=== PATIENT | female | born 1950 | race African-American/Black ===

== ENCOUNTER 2017-04-11 09:51 | Inpatient (IN) ==
--- NOTE | 2017-04-10 20:08 | Discharge Summary ---
<BrendaMariel wallaceIrene L - Last Filed: 04/10/17 20:06> Date of Encounter: 04/10/17 - Discharge Diagnosis (1) Arthritis of knee, left Priority: Primary Status: Acute (2) HTN (hypertension) Priority: Secondary Status: Chronic Qualifiers: Hypertension type: essential hypertension Qualified Code(s): I10 - Essential (primary) hypertension (3) Thyroid disease Priority: Secondary Status: Chronic (4) Obesity Priority: Secondary Status: Chronic Qualifiers: Obesity type: unspecified obesity type Obesity severity: unspecified obesity severity Qualified Code(s): E66.9 - Obesity, unspecified - Discharge Medications Home Medications: Aspirin Enteric Coated [Aspirin EC] 325 mg PO DAILY #21 tablet. 04/10/17 [Rx] OxyCODONE Immed Rel [Roxicodone 5 MG] 5 - 10 mg PO Q6HR PRN #40 tablet 04/10/17 [Rx] Albuterol Sulfate [Ventolin Hfa] 2 puff IH Q4H PRN 04/11/17 [History] Cyclosporine [Restasis] 1 each OP BID 04/11/17 [History] Diclofenac Sodium [Voltaren] 1 appl TP TID PRN 04/11/17 [History] Fluticasone Propionate Nasal [Flonase] 1 spray NS DAILY 04/11/17 [History] Furosemide [Lasix] 40 mg PO DAILY 04/11/17 [History] Gabapentin [Neurontin] 300 mg PO TID 04/11/17 [History] Ibuprofen [Motrin] 200 mg PO Q6H PRN 04/11/17 [History] Latanoprost [Xalatan] 1 drop OP HS 04/11/17 [History] Levothyroxine [Synthroid] 50 mcg PO 0630 04/11/17 [History] Meloxicam [Mobic] 15 mg PO DAILY 04/11/17 [History] Omeprazole [PriLOSEC] 40 mg PO DAILY 04/11/17 [History] Potassium Chloride [K-Tab ER] 10 meq PO BID 04/11/17 [History] Sertraline [Zoloft] 100 mg PO DAILY 04/11/17 [History] Spironolactone [Aldactone] 25 mg PO BID 04/11/17 [History] Allergies/Adverse Reactions: Allergies acetaminophen [From Excedrin Migraine] Allergy (Verified 04/11/17 10:23) See Comments rapid heart rate aspirin [From Excedrin Migraine] Allergy (Verified 04/11/17 10:23) See Comments rapid heart rate caffeine [From Excedrin Migraine] Allergy (Verified 04/11/17 10:23) See Comments rapid heart rate Tetracycline Adverse Reaction (Verified 04/11/17 10:23) Nausea acne meds Adverse Reaction (Uncoded 04/11/17 10:23) Nausea/ vomiting Primary care physician: Marifer Alvarez MD - Patient Status Disposition: Home, Self-Care Condition: Good - Discharge Instructions Follow Up With: Marifer Alvarez MD [Primary Care Provider] - - Hospital Course Hospital course: Ms. Davis is a 66 year old female - Time Spent with Patient Total time spent providing and/or coordinating discharge services: <Hong Kasper - Last Filed: 04/14/17 08:29> Date of Encounter: 04/14/17 Time of Encounter: 08:29 - Discharge Diagnosis (1) Arthritis of knee, left Priority: Primary Status: Acute (2) HTN (hypertension) Priority: Secondary Status: Chronic Qualifiers: Hypertension type: essential hypertension Qualified Code(s): I10 - Essential (primary) hypertension (3) Thyroid disease Priority: Secondary Status: Chronic (4) Obesity Priority: Secondary Status: Chronic Qualifiers: Obesity type: unspecified obesity type Obesity severity: unspecified obesity severity Qualified Code(s): E66.9 - Obesity, unspecified (5) Acute blood loss anemia Priority: Primary Status: Acute Primary care physician: Marifer Alvarez MD - Patient Status Functional capacity at discharge: uses cane/walker Overall status at discharge: patient is progressing back to baseline - Hospital Course Hospital course: Ms. Davis is a 66 year old female The patient had an uneventful postoperative course. They received antibiotics and physical therapy and were discharged in stable condition. There will follow -up in the office in 2 weeks. Patient with acute blood loss anemia received 2 units of blood prior to discharge posttransfusion hematocrit 29. Patient on anticoagulation for prophylaxis - Time Spent with Patient Total time spent providing and/or coordinating discharge services:
[2017-04-11] MEDS ORDERED: CeFAZolin Pre 2,000 MG/100 ML 2,000 MG/100 ML BAG IVPB ONE (10:13)
[2017-04-11] MEDS ORDERED: Ringers Solution, Lactated 1,000 ML IVC SCH ×2 (10:15→15:10)
--- NOTE | 2017-04-11 10:16 | History & Physical Report ---
Date of Encounter: 04/11/17 Time of Encounter: 10:16 24 Hour HP Update - Instructions Instructions: If the History and Physical is less than 30 days old and was completed prior to A.M. admission and or procedure and has NOT been updated on calendar day of procedure please complete this update prior to performing procedure. - Update Patient reports changes in Medical Condition: No Changes in examination, assessment, or condition: No Changes in Medication: No Preop tests/diagnostics Reviewed: Yes Surgery Remains Indicated: Yes Consent for Planned Operative Procedure(s) Verified: Yes - Pre-Operative Checklist Preoperative Checklist Indicated: No Prophylactic Antibiotic Ordered: Yes Is VTE Prophylaxis Indicated?: Yes
[2017-04-11] MEDS ORDERED: Gabapentin 300 MG CAPSULE PO ONE (11:43)
[2017-04-11] MEDS ORDERED: Famotidine 20 MG/2 ML VIAL IVP ONE (11:43)
--- NOTE | 2017-04-11 11:58 | Anesthesia Evaluation PreOp ---
Date of Encounter: 04/11/17 Time of Encounter: 12:00 - Past History Planned Operation: Left TKA Cardiac History: HTN Pulmonary History: Denies Any Significant HX BUSINESS DEVELOPMENT AGENT History: Paresis (Paresthesia bilat feet), Other (Alford's Palsy,) Other Medical History: Renal (CKD), Thyroid Anesthesia History: No Prior Anesthetic Complications Alcohol Use: none Drug use: none Medications and Allergies Aspirin Enteric Coated [Aspirin EC] 325 mg PO DAILY #21 tablet. 04/10/17 [Rx] OxyCODONE Immed Rel [Roxicodone 5 MG] 5 - 10 mg PO Q6HR PRN #40 tablet 04/10/17 [Rx] Albuterol Sulfate [Ventolin Hfa] 2 puff IH Q4H PRN 04/11/17 [History] Cyclosporine [Restasis] 1 each OP BID 04/11/17 [History] Diclofenac Sodium [Voltaren] 1 appl TP TID PRN 04/11/17 [History] Fluticasone Propionate Nasal [Flonase] 1 spray NS DAILY 04/11/17 [History] Furosemide [Lasix] 40 mg PO DAILY 04/11/17 [History] Gabapentin [Neurontin] 300 mg PO TID 04/11/17 [History] Ibuprofen [Motrin] 200 mg PO Q6H PRN 04/11/17 [History] Latanoprost [Xalatan] 1 drop OP HS 04/11/17 [History] Levothyroxine [Synthroid] 50 mcg PO 0630 04/11/17 [History] Meloxicam [Mobic] 15 mg PO DAILY 04/11/17 [History] Omeprazole [PriLOSEC] 40 mg PO DAILY 04/11/17 [History] Potassium Chloride [K-Tab ER] 10 meq PO BID 04/11/17 [History] Sertraline [Zoloft] 100 mg PO DAILY 04/11/17 [History] Spironolactone [Aldactone] 25 mg PO BID 04/11/17 [History] Allergies acetaminophen [From Excedrin Migraine] Allergy (Verified 04/11/17 10:23) See Comments rapid heart rate aspirin [From Excedrin Migraine] Allergy (Verified 04/11/17 10:23) See Comments rapid heart rate caffeine [From Excedrin Migraine] Allergy (Verified 04/11/17 10:23) See Comments rapid heart rate Tetracycline Adverse Reaction (Verified 04/11/17 10:23) Nausea acne meds Adverse Reaction (Uncoded 04/11/17 10:23) Nausea/ vomiting - Meds/Allergy Pre-op Review Medications Reviewed: Yes Allergies Reviewed: Yes Beta Blockers on Current Med List: No Anesthesia Results - Labs Laboratory Tests 04/04/17 04/04/17 14:15 14:15 Hgb 11.1 L Hct 37.8 Plt Count 199 Sodium 140 Potassium 3.8 BUN 28 H Creatinine 1.42 H - Imaging EKG: report reviewed (SR) Anesthesia Exam O2 Sat Height 73.76 m Height 73.76 m Weight 109.769 kg Weight 109.769 kg O2 Sat by Pulse Oximetry 95 Vital Signs Temp Pulse Resp BP Pulse Ox 98.3 F 79 16 117/68 95 04/11/17 10:37 04/11/17 10:37 04/11/17 10:37 04/11/17 10:37 04/11/17 10:37 Height: 5'3 Weight: 242 lbs NPO (# of Hours): MN Pain Scale: 0 - HEENT Pupil (Motor): Pupils equal, EOMI Mallampati: II Teeth: Normal Oral Opening: Greater than 3 - BUSINESS DEVELOPMENT AGENT LOC: Oriented BUSINESS DEVELOPMENT AGENT Motor: Normal RUE, Normal LUE, Normal RLE, Normal LLE, Normal Face BUSINESS DEVELOPMENT AGENT Sensory: Normal: RUE, LUE, Face, Deficit: RLE (paresthesia), LLE ( paresthesia) - Cardiac Rhythm: Regular Murmur: None JVD: No Carotid Bruit: No - Pulmonary Breath Sounds: bilateral Clear Respiratory Effort: Symmetrical Anesthesia Assess/Plan ASA Score: 3 (HTN Hypothyroid CKD) Modified [place] Scale for Level of Consciousness: Cooperative, oriented, and tranquil Anesthetic Plan: General, Regional Monitoring Plan: Standard Monitors Recovery Plan: PACU (Discussed GA and RA, agrees to proceed)
[2017-04-11] MEDS ORDERED: Tetracaine/PF 20 MG/2 ML AMPUL ONE (12:16)
[2017-04-11] MEDS ORDERED: Bupivacaine/Clonidine Syringe 1 EACH SYRINGE ONE (12:16)
--- NOTE | 2017-04-11 12:45 | Anesthesia Procedures ---
Date of Encounter: 04/11/17 Time of Encounter: 12:43 Procedures: Anesthesia - Nerve Block Procedure Date: 04/11/17 Time: 12:43 Allergies/Adv Reactions: please see H&P Pre-op Diagnosis: L knee arthritis Surgical Procedure: L TKA Checklist: Correct Patient Identifier, Correct procedure, History checked Correct side: Left Blood Thinner: No Monitor Applied: EKG, BP, Pulse Oximetry Supplemental Oxygen via Nasal Cannula (L/min): 3 Sedation: Versed (mg): 4 Sedation: Fentanyl (mcg): 100 Indication: Post Op Analgesia (requested by Dr. Kasper) Pre-op Neuro Deficits: No Block Type: Femoral, Other (iPACK) Catheter placed: No Sterile Technique: Yes Ultrasound used: Yes Anatomy identified: Yes Visual spread of Local: Yes Neuro Stimulation: Yes Nerve Stimulator Range: 0.2 - 0.4 mA Blood on Needle Aspiration: No Smooth Injection of Local: Yes Pain with Injection of Local: No Prep: Chlorhexadine Needle: 22 x 50 mm Stimuplex (for femoral n. block), 21 x 100 mm Stimuplex ( echogenic for iPACK block) Local: 0.25% Bupivicaine w/Clonidine 20 mcg/cc (20mL for iPACK), Other (0.5% bupivicaine 30mL for femoral n. block) Number of Attempts: 1 Complications: None/effective block Vitals: 3 Vital Signs Time pre-procedure post-procedure BP 110/71 115/73 Pulse 77 76 Resp 16 14 O2 Sat 99 99
[2017-04-11] MEDS ORDERED: *HR* HYDROmorphone (PF) 1 MG/ML SYRINGE IVP PRN (12:47)
[2017-04-11] MEDS ORDERED: Ondansetron 4 MG/2 ML VIAL IVP PRN ×2 (12:47→15:10)
[2017-04-11] MEDS ORDERED: *HR* Labetalol 100 MG/20 ML MDV IVP PRN (12:47)
[2017-04-11] MEDS ORDERED: Ondansetron 4 MG/2 ML VIAL ONE (13:28)
[2017-04-11] MEDS ORDERED: *HR* Propofol 200 MG/20 ML VIAL IVP ONE (13:28)
[2017-04-11] MEDS ORDERED: *HR* FentaNYL (PF) 100 MCG/2 ML VIAL ONE (13:28)
[2017-04-11] MEDS ORDERED: Dexamethasone 4 MG/ML VIAL ONE (13:28)
[2017-04-11] MEDS ORDERED: Lidocaine -MPF 2% 2 ML VIAL ONE (13:28)
[2017-04-11] MEDS ORDERED: *HR* Midazolam HCl 2 MG/2 ML VIAL ONE (13:28)
[2017-04-11] MEDS ORDERED: *HR* HYDROmorphone 2 MG/ML SYRINGE ONE (13:31)
--- NOTE | 2017-04-11 13:42 | Orthopedic Operative Note ---
Date of procedure: 04/11/17 Pre-op diagnosis: Left knee arthritis Post-op diagnosis: same Procedure: Procedure: Left Total knee replacement Estimated blood loss: 200 cc Hardware: Metal and polyethylene replacement. Biomet titanium: Femur left 70, 75 tibia, 10 PS plus polys, 37 patella Exam Under anesthesia: loss full extension 10 degrees full flexion and no instability Procedural Notes: Grade 4 arthritic changes medial compartment grade 3 arthritic changes patellofemoral joint lateral compartment. Operative procedure: The patient was brought to the operating room and placed on the operating room table. After general anesthesia was administered the operative knee was examined. Findings were noted in the exam under anesthesia. The operative extremity was prepped and draped in sterile surgical fashion. The patient received IV antibiotics prior to skin incision. A standard midline incision was made centered over the patella. The incision was made through the skin and subcutaneous tissue. A medial parapatellar tendon approach was performed. Care was taken to preserve tissue along the medial aspect of the patella. And to protect the patella tendon. The deep MCL was released off the medial tibia. The infra patella fat pad was excised. Knee was brought into flexion. Patient noted to have grade 4 arthritic changes medial compartment with 3 arthritic changes lateral compartment and patellofemoral joint. The entry hole was made for the intramedullary femoral guide. The guide was seated in 6 degrees of valgus. Anterior cut was made followed by the distal cut. The ACL the PCL the medial and the lateral menisci were excised. The tibia was subluxed forward. The entry hole was made for the intramedullary tibial guide. Guide was seated to resect 2 mm off the more abnormal side. The knee was brought into flexion the distal femur was sized 70. The femoral guide was seated, the anterior cut was made followed by the posterior condylar cut, followed by the chamfer cuts. The finishing guide was seated the box cut was made and the lug holes were drilled. The tibia was sized 75, the tibial tray was seated and prepared with the large drill followed by the fin cutter. Trial reduction revealed full extension no varus valgus instability with the appropriate 10 PS plus Sherri. The patella was everted and cut was made at the level of the insertion of the quadriceps and patella tendon. The patella was sized to a 37 the guide was seated and the lug holes are drilled. Trial reduction revealed excellent patella tracking. All trial components were removed all bony surfaces were irrigated. The tibia was cemented first followed by the femur. The 10 PS plus Sherri was seated and the knee was brought into full extension. The patella was cemented and held in place with the patellar holding clamp. After the cement had hardened, the knee sat for 2 minutes with a Betadine saline solution. The knee was then irrigated out with 2 L of pulse irrigation. The extensor mechanism was closed with #2 FiberWire suture and #2 PDS suture. The subcutaneous tissue was then irrigated and closed deep with #1 PDS suture superficially with 0 PDS suture and skin was closed with skin ronald. The patient was then placed in a sterile dressing and a postoperative brace extubated and transferred to recovery room in stable condition. Anesthesia: GETA Surgeon: Hong Kasper Condition: stable Disposition: PACU
[2017-04-11 14:44] LABS: Hematocrit 32.8 % (35.3-44.9); Hemoglobin 9.9 g/dL (11.5-15.4)
[2017-04-11] MEDS ORDERED: Naloxone 0.4 MG/ML INJ IVP PRN (15:10)
[2017-04-11] MEDS ORDERED: MOM Conc 10 ML UD.LIQ PO PRN (15:10)
[2017-04-11] MEDS ORDERED: *HR* OxyCODONE Immed Rel 5 MG TABLET PO PRN (15:10)
[2017-04-11] MEDS ORDERED: Sennosides 8.6 MG TABLET PO PRN (15:10)
[2017-04-11] MEDS ORDERED: Temazepam 15 MG CAPSULE PO PRN (15:10)
[2017-04-11] MEDS: Gabapentin 300 MG CAPSULE PO SCH ×2 (15:54→20:33)
[2017-04-11] MEDS: ceFAZolin 2,000 MG in D5% in Water 100 ML IVPB SCH ×2 (15:54→23:58)
[2017-04-11] MEDS: *HR* Enoxaparin 30 MG/0.3 ML SYRINGE SQ SCH (17:20)
[2017-04-11] MEDS ORDERED: *HR* Enoxaparin 30 MG/0.3 ML SYRINGE SQ SCH (18:00)
[2017-04-11] MEDS: Spironolactone 25 MG TABLET PO SCH (20:33)
[2017-04-11] MEDS: Latanoprost 2.5 ML BOTTLE BOTH EYES SCH (20:49)
[2017-04-11] MEDS: (Cyclosporine [Restasis] 1 EACH) OP SCH (20:53)
[2017-04-12] MEDS: *HR* OxyCODONE Immed Rel 5 MG TABLET PO PRN ×5 (00:01→21:49)
[2017-04-12] MEDS: *HR* Enoxaparin 30 MG/0.3 ML SYRINGE SQ SCH ×2 (04:22→16:59)
[2017-04-12 05:00] LABS: Hematocrit 29.8 % (35.3-44.9); Hemoglobin 8.9 g/dL (11.5-15.4)
[2017-04-12 05:21] LABS: Calcium 8.7 mg/dL (8.6-10.8); Potassium 4.2 mEq/L (3.5-4.5)
--- NOTE | 2017-04-12 06:30 | Orthopedics Progress Note ---
Date of Encounter: 04/12/17 Time of Encounter: 06:29 - Assessment and Plan (1) Arthritis of knee, left Current Visit: Yes Status: Acute (2) HTN (hypertension) Current Visit: Yes Status: Chronic Qualifiers: Hypertension type: essential hypertension Qualified Code(s): I10 - Essential (primary) hypertension (3) Thyroid disease Current Visit: Yes Status: Chronic (4) Obesity Current Visit: Yes Status: Chronic Qualifiers: Obesity type: unspecified obesity type Obesity severity: unspecified obesity severity Qualified Code(s): E66.9 - Obesity, unspecified Subjective Interval history: Patient was seen this morning doing well without complaints. Afebrile vital signs stable. Operative extremity: Neurovascularly intact Dressing clean dry and intact Calves nontender Assessment and plan: Continue with postoperative care Hematocrit 29 Objective Vital signs: Vital Signs Temp Pulse Resp BP Pulse Ox 04/12/17 03:59 97.7 F 71 17 108/66 96 04/12/17 00:33 98.6 F 86 19 142/76 98 04/11/17 23:56 97.6 F 70 15 114/75 98 04/11/17 18:08 97.7 F 74 14 102/65 94 04/11/17 17:27 97.8 F 69 20 95/63 96 04/11/17 17:11 70 18 110/74 96 04/11/17 16:01 98.5 F 70 18 110/74 96 04/11/17 15:27 98.4 F 73 18 109/74 95 04/11/17 15:00 97.6 F 75 15 128/83 92 04/11/17 14:56 97.9 F 73 14 126/81 94 04/11/17 14:46 97.9 F 72 16 132/82 98 04/11/17 14:36 68 14 116/82 95 04/11/17 14:26 68 16 95/58 95 04/11/17 14:16 98.3 F 70 16 104/60 93 04/11/17 12:43 75 16 115/73 96 04/11/17 12:30 74 16 110/71 92 04/11/17 12:20 80 16 120/78 95 04/11/17 10:37 98.3 F 79 16 117/68 95 Intake and Output 04/11/17 04/11/17 04/12/17 15:59 23:59 07:59 Intake Total 300 / 300 Output Total 200 / 200 400 / 400 Balance -200 / -200 300 / 300 -400 / -400 Intake: IV Fluids 100 / 100 Ancef 2,000 MG In 100 / 100 Dextrose 5% 100 ML @ 200 mls/hr IVPB Q8HR [facility] Rx#: [id number] Oral 200 / 200 Output: Urine 400 / 400 Estimated Blood Loss 200 / 200 Other: Weight 109.769 kg - Labs CBC & BMP: 04/12/17 04:51 04/12/17 04:51 Labs: Abnormal lab results Hgb 8.9 g/dL (11.5-15.4) L 04/12/17 04:51 Hct 29.8 % (35.3-44.9) L 04/12/17 04:51 BUN 24 mg/dL (7-20) H 04/12/17 04:51 Creatinine 1.13 mg/dL (0.57-1.11) H 04/12/17 04:51 Est GFR ( Amer) 59 (> 60) L 04/12/17 04:51 Est GFR (Non-Af Amer) 48 (> 60) L 04/12/17 04:51 Glucose 132 mg/dL (70-99) H 04/12/17 04:51 - VTE Documentation of Mechanical Device: Venous foot pump, device Consult Discharge Plan - Plan Referrals: Marifer Alvarez MD [Primary Care Provider] -
[2017-04-12] MEDS: *HR* HYDROmorphone (PF) 1 MG/ML SYRINGE IVP PRN ×3 (07:08→16:23)
[2017-04-12] MEDS: Furosemide 40 MG TABLET PO SCH (08:50)
[2017-04-12] MEDS: Spironolactone 25 MG TABLET PO SCH ×2 (08:50→21:45)
[2017-04-12] MEDS: (Cyclosporine [Restasis] 1 EACH) OP SCH ×2 (08:50→23:30)
[2017-04-12] MEDS: Gabapentin 300 MG CAPSULE PO SCH ×3 (08:50→21:45)
[2017-04-12] MEDS: Fluticasone Propionate Nasal 50 MCG/SPRAY BOTTLE NS SCH (08:51)
[2017-04-12] MEDS: Latanoprost 2.5 ML BOTTLE BOTH EYES SCH (21:51)
[2017-04-13] MEDS: *HR* OxyCODONE Immed Rel 5 MG TABLET PO PRN ×4 (03:37→21:29)
[2017-04-13 05:32] LABS: Hematocrit 26.1 % (35.3-44.9); Hemoglobin 8.1 g/dL (11.5-15.4)
[2017-04-13] MEDS: *HR* Enoxaparin 30 MG/0.3 ML SYRINGE SQ SCH ×2 (05:33→17:45)
[2017-04-13] MEDS: *HR* HYDROmorphone (PF) 1 MG/ML SYRINGE IVP PRN (05:37)
[2017-04-13 05:50] LABS: Calcium 8.7 mg/dL (8.6-10.8); Potassium 4.2 mEq/L (3.5-4.5)
--- NOTE | 2017-04-13 06:33 | Orthopedics Progress Note ---
Date of Encounter: 04/13/17 Time of Encounter: 06:32 - Assessment and Plan (1) Arthritis of knee, left Current Visit: Yes Status: Acute (2) HTN (hypertension) Current Visit: Yes Status: Chronic Qualifiers: Hypertension type: essential hypertension Qualified Code(s): I10 - Essential (primary) hypertension (3) Thyroid disease Current Visit: Yes Status: Chronic (4) Obesity Current Visit: Yes Status: Chronic Qualifiers: Obesity type: unspecified obesity type Obesity severity: unspecified obesity severity Qualified Code(s): E66.9 - Obesity, unspecified Subjective Interval history: Patient was seen this morning doing well without complaints. Afebrile vital signs stable. Operative extremity: Neurovascularly intact Dressing clean dry and intact Calves nontender Assessment and plan: Continue with postoperative care Hematocrit 26 transfuse 2 units Objective Vital signs: Vital Signs Temp Pulse Resp BP Pulse Ox 04/13/17 04:22 99.8 F H 98 16 132/83 95 04/13/17 00:57 99.7 F H 93 15 129/76 97 04/12/17 20:35 99.5 F 96 16 126/81 93 04/12/17 15:14 98.0 F 88 16 117/68 93 04/12/17 11:01 98.3 F 78 16 110/72 94 04/12/17 06:49 98.3 F 76 16 110/72 94 Intake and Output 04/12/17 04/12/17 04/13/17 15:59 23:59 07:59 Intake Total 360 / 360 350 / 350 175 / 175 Output Total 200 / 200 630 / 630 Balance 160 / 160 -280 / -280 175 / 175 Intake: Oral 360 / 360 350 / 350 175 / 175 Output: Urine 200 / 200 630 / 630 Other: Meal Breakfast Dinner Percent of Meal Consumed 100% 100% - Labs CBC & BMP: 04/13/17 04:35 04/13/17 04:35 Labs: Abnormal lab results Hgb 8.1 g/dL (11.5-15.4) L 04/13/17 04:35 Hct 26.1 % (35.3-44.9) L 04/13/17 04:35 BUN 26 mg/dL (7-20) H 04/13/17 04:35 Creatinine 1.30 mg/dL (0.57-1.11) H 04/13/17 04:35 Est GFR ( Amer) 50 (> 60) L 04/13/17 04:35 Est GFR (Non-Af Amer) 41 (> 60) L 04/13/17 04:35 Glucose 134 mg/dL (70-99) H 04/13/17 04:35 - VTE Documentation of Mechanical Device: Venous foot pump, device Consult Discharge Plan - Plan Referrals: Marifer Alvarez MD [Primary Care Provider] -
[2017-04-13] MEDS ORDERED: Furosemide 20 MG/2 ML VIAL IVP ONE ×2 (06:36→20:29)
[2017-04-13] MEDS: Spironolactone 25 MG TABLET PO SCH ×2 (08:01→21:14)
[2017-04-13] MEDS: Gabapentin 300 MG CAPSULE PO SCH ×3 (08:01→21:15)
[2017-04-13] MEDS: Furosemide 40 MG TABLET PO SCH (08:01)
[2017-04-13] MEDS: Fluticasone Propionate Nasal 50 MCG/SPRAY BOTTLE NS SCH (08:02)
[2017-04-13] MEDS: (Cyclosporine [Restasis] 1 EACH) OP SCH ×2 (08:02→21:32)
[2017-04-13] MEDS ORDERED: 0.9 % Sodium Chloride 250 ML ONE ×2 (09:31→16:35)
[2017-04-13] MEDS: Latanoprost 2.5 ML BOTTLE BOTH EYES SCH (21:31)
[2017-04-14] MEDS: *HR* OxyCODONE Immed Rel 5 MG TABLET PO PRN (04:30)
[2017-04-14] MEDS: *HR* Enoxaparin 30 MG/0.3 ML SYRINGE SQ SCH (05:57)
[2017-04-14 06:52] VITALS: BP 117/76
[2017-04-14 08:22] LABS: Basophils % 0.2 %; Eosinophils # 0.1 K/mcL (0.0-0.6); Eosinophils % 0.8 %; Hematocrit 29.6 % (35.3-44.9); Hemoglobin 9.4 g/dL (11.5-15.4); Immature Granulocytes % 0.8 % (0-4); Lymphocytes # 1.4 K/mcL (0.6-4.6); Lymphocytes % 13.3 %; Mean Corpuscular HGB Conc 31.8 g/dL (31.6-35.5); Mean Corpuscular Hemoglobin 26.6 pg (28.0-33.3); Mean Corpuscular Volume 83.6 fL (83.0-100.0); Mean Platelet Volume 10.3 fL (9.4-12.4); Monocytes # 0.9 K/mcL (0.0-1.3); Monocytes % 8.1 %; Neutrophils # 8.2 K/mcL (1.6-8.9); Platelet Count 165 K/mcL (140-400); Red Blood Count 3.54 M/mcL (3.82-4.97); Red Cell Distribution Width 14.8 % (11.5-14.5); Segmented Neutrophils % 76.8 %
--- NOTE | 2017-04-14 08:30 | Orthopedics Progress Note ---
Date of Encounter: 04/14/17 Time of Encounter: 08:30 - Assessment and Plan (1) Arthritis of knee, left Current Visit: Yes Status: Acute (2) HTN (hypertension) Current Visit: Yes Status: Chronic Qualifiers: Hypertension type: essential hypertension Qualified Code(s): I10 - Essential (primary) hypertension (3) Thyroid disease Current Visit: Yes Status: Chronic (4) Obesity Current Visit: Yes Status: Chronic Qualifiers: Obesity type: unspecified obesity type Obesity severity: unspecified obesity severity Qualified Code(s): E66.9 - Obesity, unspecified (5) Acute blood loss anemia Current Visit: Yes Status: Acute Subjective Interval history: Patient was seen this morning doing well without complaints. Afebrile vital signs stable. Operative extremity: Neurovascularly intact Dressing clean dry and intact Calves nontender Assessment and plan: Continue with postoperative care Hematocrit 29 discharged today Objective Vital signs: Vital Signs Temp Pulse Resp BP Pulse Ox 04/14/17 06:45 98.8 F 97 16 117/76 94 04/14/17 01:10 99.0 F 101 16 115/73 92 04/13/17 21:21 97 04/13/17 20:25 99.2 F 97 20 136/80 97 04/13/17 14:52 98.8 F 91 18 103/65 93 04/13/17 12:50 98.1 F 91 16 101/68 93 04/13/17 10:59 98.6 F 93 14 119/76 91 04/13/17 10:05 98.4 F 93 16 117/77 95 04/13/17 09:50 97.5 F L 97 18 115/74 94 Intake and Output 04/13/17 04/14/17 04/14/17 23:59 07:59 15:59 Intake Total 50 / 50 Output Total 100 / 100 Balance -50 / -50 Intake: Oral 50 / 50 Output: Urine 100 / 100 - Labs CBC & BMP: 04/14/17 06:54 04/13/17 04:35 Labs: Abnormal lab results RBC 3.54 M/mcL (3.82-4.97) L 04/14/17 06:54 Hgb 9.4 g/dL (11.5-15.4) L 04/14/17 06:54 Hct 29.6 % (35.3-44.9) L 04/14/17 06:54 MCH 26.6 pg (28.0-33.3) L 04/14/17 06:54 RDW 14.8 % (11.5-14.5) H 04/14/17 06:54 BUN 26 mg/dL (7-20) H 04/13/17 04:35 Creatinine 1.30 mg/dL (0.57-1.11) H 04/13/17 04:35 Est GFR ( Amer) 50 (> 60) L 04/13/17 04:35 Est GFR (Non-Af Amer) 41 (> 60) L 04/13/17 04:35 Glucose 134 mg/dL (70-99) H 04/13/17 04:35 POC Glucose 129 (58-89) H 04/13/17 07:52 - VTE Documentation of Mechanical Device: Venous foot pump, device Consult Discharge Plan - Plan Referrals: Marifer Alvarez MD [Primary Care Provider] -
[2017-04-14] MEDS: Gabapentin 300 MG CAPSULE PO SCH (09:10)
[2017-04-14] MEDS: Furosemide 40 MG TABLET PO SCH (09:11)
[2017-04-14] MEDS: Fluticasone Propionate Nasal 50 MCG/SPRAY BOTTLE NS SCH (09:11)
[2017-04-14] MEDS: Spironolactone 25 MG TABLET PO SCH (09:11)
[2017-04-14] MEDS: (Cyclosporine [Restasis] 1 EACH) OP SCH (09:12)
== END 2017-04-14 13:01 | disposition home or self-care (01) | DRG 470 ==
LOC: SAMDAY 09:51 → 3NENU 15:07
PROVIDERS: ADMIT Orthopaedic Surgery; ATTEND Orthopaedic Surgery